=== PATIENT | female | born 1970 | race Caucasian/White ===

== ENCOUNTER 2018-01-18 08:17 | Day surgery (SDC) | payer OTHER, BC ==
[~2018-01-18] VITALS: Ht 162.6 cm; Wt 68.2 kg
[2018-01-18] MEDS ORDERED: TRAZ50TA12 PO (08:55)
[2018-01-18] MEDS ORDERED: ALPR.5 PO (08:55)
[2018-01-18] MEDS ORDERED: FOSA70TA PO (08:55)
[2018-01-18] MEDS ORDERED: CYMB60CA PO (08:55)
[2018-01-18] MEDS ORDERED: PRED5TAB PO (08:55)
[2018-01-18] MEDS ORDERED: LEVO75TA3 PO (08:55)
[2018-01-18] MEDS ORDERED: VITA1000 PO (08:55)
[2018-01-18 09:00] VITALS: BP 146/86; PULSE 86; RESP 17; TEMP 97.9; O2SAT 100
[2018-01-18] MEDS ORDERED: SODIUM CHLOR 0.9% 1000 ML INJ 1,000 ML IV SCH (09:30)
[2018-01-18 09:33] LABS: AUTOMATED NEUTROPHIL # 5.3 TH/MM3 (1.8-7.7); BASOPHIL # 0.1 TH/MM3 (0-0.2); BASOPHIL % 0.9 % (0.0-2.0); EOSINOPHIL # 0.1 TH/MM3 (0-0.4); EOSINOPHIL % 0.8 % (0.0-4.0); HEMATOCRIT 43.4 % (35.0-46.0); HEMOGLOBIN 14.8 GM/DL (11.6-15.3); LYMPH % 25.4 % (9.0-44.0); MEAN CELL VOLUME 85.4 FL (80.0-100.0); MEAN CORPUSCULAR HEMOGLOBIN 29.1 PG (27.0-34.0); MEAN CORPUSCULAR HGB CONC 34.1 % (32.0-36.0); MEAN PLATELET VOLUME 6.9 FL (7.0-11.0); MONO % 3.7 % (0.0-8.0); MONOCYTE # 0.3 TH/MM3 (0-0.9); NEUT % 69.2 % (16.0-70.0); PLATELET COUNT 332 TH/MM3 (150-450); RED BLOOD COUNT 5.08 MIL/MM3 (4.00-5.30); RED CELL DISTRIBUTION WIDTH 13.6 % (11.6-17.2); WHITE BLOOD COUNT 7.7 TH/MM3 (4.0-11.0)
[2018-01-18 09:35] LABS: PROTHROMBIN TIME - PATIENT 10.1 SEC (9.8-11.6)
[2018-01-18 09:55] LABS: BICARBONATE 27.6 MEQ/L (21.0-32.0); CALCIUM 9.3 MG/DL (8.5-10.1); CREATININE 0.96 MG/DL (0.50-1.00)
[2018-01-18 10:30] VITALS: BP 146/78; PULSE 84; RESP 18; TEMP 97.4; O2SAT 98
--- NOTE | 2018-01-18 10:44 | PD.RAD ---
Post Procedure Progress Note Pre Procedure Diagnosis: (1) Multiple sclerosis Post Procedure Diagnosis: (1) Multiple sclerosis Procedure Date: Jan 18, 2018 Supervising Radiologist: Ralph Silva Proceduralist/Assist: RT Ron(R), RT Carlene(R)(CV) Anesthesia: Local Plan of Activity Patient to Unit: ROPU Patient Condition: Good See PACS Report for procedural detail/treatment Spinal Procedure Lumbar Puncture L3-L4 Fluid Removal (CCs): 19 Additional Detail: opening pressure 27 closing pressure 8 Ralph Silva MD Jan 18, 2018 10:44
[2018-01-18 11:28] LABS: TOTAL PROTEIN,CSF 37.8 MG/DL (15.0-45.0)
[2018-01-18 13:19] LABS: SUPERNATE COLOR TUBE #1 CLEAR (CLEAR)
[2018-01-18 13:20] LABS: CSF LYMPHOCYTES 100 %; CSF NEUTROPHILS 0 %; RBC TUBE #1 26 /MM3; WBC TUBE #1 8 /MM3 (0-10)
[2018-01-18 13:25] LABS: CSF LYMPHOCYTES 0 %; CSF NEUTROPHILS 0 %; RBC TUBE #4 0 /MM3; WBC TUBE #4 0 /MM3 (0-10)
--- NOTE | 2018-01-18 14:04 | RADRPT ---
EXAM DATE/TIME: 01/18/2018 10:55 [facility] COMPARISON: No previous studies available for comparison. INDICATIONS : Patient presents with headache and cervical myelopathy in need of lumbar puncture with opening pressu res to rule out multiple sclerosis. MEDICAL HISTORY : MS Cervical myelopathy Spasticity Thyroid disease SURGICAL HISTORY : Lap Hernia repair ENCOUNTER: Initial ACUITY: >1 year PAIN SCORE: 7/10 LOCATION: Headache LUMBAR PUNCTURE TIME: 10:17 hours FLUORO TIME: 1.5 minutes IMAGE SERIES: 0 ACCESS LEVEL: L3-4 OPENING PRESSURE: 27 cm of water CLOSING PRESSURE: 8 cm of water FLUID: 19.5 cc of clear CSF was collected and sent to the laboratory for analysis. PROCEDURE : 1. Fluoroscopic guided lumbar puncture. 2. Recording of opening pressure. The risks, benefits and alternatives to the procedure were explained and verbal and written consent w as obtained. The site was prepped in sterile fashion. Full sterile technique was used, including ca p, mask, sterile gloves and gown and a large sterile sheet. Hand hygiene and 2% chlorhexidine and/or betadine/alcohol prep was utilized per protocol for cutaneous antisepsis. The skin and subcutaneous tissues were infiltrated with local anesthetic solution. With fluoroscopic guidance the lumbar thecal sac was punctured at the above level described above and the opening pressure was recorded. The above described fluid was removed without difficulty. The patient tolerated the procedure well and there were no complications. CONCLUSION: Uncomplicated fluoroscopically guided lumbar puncture with pressures as above. Ralph Silva MD on January 18, 2018 at 14:03 Board Certified Radiologist. This report was verified electronically.
[2018-01-19 07:22] LABS: HSV 1,PCR Negative (Negative)
[2018-01-19 09:55] LABS: CMV DNA QUANT BY RAPID PCR Negative (Negative); CMV PCR SPECIMEN SOURCE LUMBAR PUNCTURE
[2018-01-20 19:53] LABS: CSF CRYPTOCOCCUS ANTIGEN NOT DETECTED (NEGATIVE)
[2018-01-21 10:45] LABS: CSF CRYPTOCOCCUS AG CONF ND (NOT DETECTD)
[2018-01-22 23:54] LABS: VZV PCR RESULT <500 (<500 copies)
== END 2018-01-18 14:00 | disposition home or self-care (01) ==
LOC: HROP 08:17 → HRIP 08:30 → HROP 14:00
PROVIDERS: ATTEND Psychiatry & Neurology Neurology
DX: G35 Multiple sclerosis (principal)
CPT/HCPCS: 62270; 77003; 80048; 82040; 82042; 82784; 82945; 83873; 83916; 84157; 85025; 85610; 85730; 86403; 86618; 87070; 87205; 87497; 87529; 87799; 88108; 89051; J7030

== ENCOUNTER 2018-01-21 13:14 | Emergency (ER) | payer OTHER, BC ==
[~2018-01-21] VITALS: Ht 162.6 cm; Wt 67.0 kg
[~2018-01-21 13:14] MED LIST: ALPR.5 PO; CYMB60CA PO; FOSA70TA PO; LEVO75TA3 PO; PRED5TAB PO; TRAZ50TA12 PO; VITA1000 PO
[2018-01-21 13:21] VITALS: BP 180/94; PULSE 94; RESP 17; TEMP 96.7; O2SAT 100
[2018-01-21] MEDS ORDERED: IBUP1TAB7 PO (13:52)
[2018-01-21] MEDS ORDERED: PRED5TAB PO (13:52)
[2018-01-21 13:58] VITALS: BP 180/93; PULSE 86; RESP 20; O2SAT 97
[2018-01-21] MEDS ORDERED: SODIUM CHLOR 0.9% 1000 ML INJ 1,000 ML IV SCH (14:08)
[2018-01-21] MEDS ORDERED: PROCHLORPERAZINE INJ 10 MG/2 ML VIAL IVP ONE (14:15)
[2018-01-21] MEDS ORDERED: diphenhydrAMINE HCL 50 MG/ML VIAL IVP ONE (14:15)
[2018-01-21] MEDS ORDERED: SODIUM CHLORIDE 0.9% FLUSH 10 ML FLUSH IV FLUSH PRN (14:15)
--- NOTE | 2018-01-21 14:46 | PD ---
HPI Chief Complaint: Headache Time Seen by Provider: 13:52 Travel History International Travel<30 days: No Contact w/Intl Traveler<30days: No Traveled to known affect area: No History of Present Illness HPI 47-year-old female presents to the emergency department with complaint of headaches today and yesterday after having lumbar puncture on for a workup for MS. Her lumbar puncture was done here by Dr. Daniels. She said she did have a spinal headache after the procedure and it went away. Headache is frontal. Suddenly onset. Said she had a hot flash and then the headache onset. Denies photophobia, phonophobia, change in vision. Denies confusion, disorientation, change in mentation, slurred speech, focal deficits or weakness. Denies fever. Reports nausea without vomiting. Said she did get a "mouthful of vomit." Says she does have "left-sided decreased coordination" that is not new and that is what she is currently being worked up for outpatient. Rates headache 06/29. Describes it as sharp. Says it is constant. Has tried taking ibuprofen 800 mg with no relief of symptoms. Headache is decreased when she lies back. Primary care provider is Dr. Jodi Schulte. Allergies to cats. Says her blood pressure is been elevated on and off for the past 6 months but has not been diagnosed with hypertension and does not take medications. Otherwise she has no chronic medical complaints. No other modifying factors or associated signs and symptoms. PFSH Past Medical History Cancer: No Cardiovascular Problems: No Diabetes: No Endocrine: No Genitourinary: No Hepatitis: No Hiatal Hernia: No Immune Disorder: Yes (LP MONDAY-R/O MS ) Musculoskeletal: No Neurologic: Yes (spasms ) Psychiatric: Yes (depression, anxiety) Reproductive: Yes (fibroids) Respiratory: No Thyroid Disease: Yes ?: Not Menopausal: Yes Past Surgical History Abdominal Surgery: Yes (lap, hernia) AICD: No Cardiac Surgery: No Ear Surgery: No Endocrine Surgery: No Eye Surgery: No Genitourinary Surgery: No Gynecologic Surgery: No Joint Replacement: No Oral Surgery: No Pacemaker: No Thoracic Surgery: No Other Surgery: Yes Social History Alcohol Use: Yes Tobacco Use: No Substance Use: No Allergies-Medications (Allergen,Severity, Reaction): Uncoded Allergies: cats (Allergy, Severe, Anaphylaxis, 01/18/18) Reported Meds & Prescriptions Reported Meds & Active Scripts Active Reported Ibuprofen 800 Mg Tab 800 Mg PO Q6HR PRN Prednisone 5 Mg Tab 5 Mg PO DAILY Xanax (Alprazolam) 0.5 Mg Tab 0.5 Mg PO Q8H PRN Fosamax (Alendronate Sodium) 70 Mg Tab 70 Mg PO Q7D Vitamin D-1000 (Cholecalciferol) 1,000 Unit Tab 2,000 Units PO DAILY Trazodone (Trazodone HCl) 50 Mg Tab 50 Mg PO HS Levothyroxine (Levothyroxine Sodium) 75 Mcg Tab 75 Mcg PO DAILY Cymbalta DR (Duloxetine HCl) 60 Mg Capdr 60 Mg PO DAILY Review of Systems Except as stated in HPI: all other systems reviewed are Neg Physical Exam Narrative GENERAL: Well-nourished, well-developed female patient, in no acute distress SKIN: Warm and dry. HEAD: Atraumatic. Normocephalic. No facial droop noted. Tongue midline. Shoulder shrug equal. Finger to nose test normal. EYES: Pupils equal and round at 4 mm with brisk reaction. No scleral icterus. No injection or drainage. PERRLA. EOMI. ENT: Mucosa pink and moist. Airway patent. NECK: Trachea midline. No lymphadenopathy. CARDIOVASCULAR: Regular rate and rhythm. No murmur appreciated. RESPIRATORY: No accessory muscle use. Clear to auscultation. Breath sounds equal bilaterally. GASTROINTESTINAL: Abdomen soft, non-tender, nondistended. Hepatic and splenic margins not palpable. Bowel sounds are active 4 quadrants. MUSCULOSKELETAL: No obvious deformities. No clubbing. No cyanosis. No edema. NEUROLOGICAL: Awake and alert. Oriented 4. No obvious cranial nerve deficits. Motor grossly within normal limits. Normal speech. No ataxia. No mid -line drift. No upper or lower extremity drift. Moves all extremities. 5/5 strength to all extremities. PSYCHIATRIC: Appropriate mood and affect; insight and judgment normal. Data Data Last Documented VS Vital Signs Date Time Temp Pulse Resp B/P (MAP) Pulse Ox O2 Delivery O2 Flow Rate FiO2 01/21/18 13:58 86 20 180/93 (122) 97 Room Air 01/21/18 13:21 96.7 Orders Orders Iv Access Insert/Monitor (01/21/18 14:08) Sodium Chlor 0.9% 1000 Ml Inj (Ns 1000 M (3/4/18 14:08) Sodium Chloride 0.9% Flush (Ns Flush) (01/21/18 14:15) Prochlorperazine Inj (Compazine Inj) (01/21/18 14:15) Diphenhydramine Inj (Benadryl Inj) (01/21/18 14:15) Ketorolac Inj (Toradol Inj) (01/21/18 15:00) MDM Medical Decision Making Medical Screen Exam Complete: Yes Emergency Medical Condition: Yes Medical Record Reviewed: Yes Differential Diagnosis Headache after spinal puncture, CSF leak, medical clearance Narrative Course 47-year-old female with headache after lumbar puncture that was done on . Neuro exam is unremarkable. I discussed the patient with Dr. Cortés and she recommended calling radiology to determine imaging done to rule out CSF leak. Dr. Erickson spoke with Dr. Sandhu, radiologist and he recommended for the patient to lie flat and drink caffeinated drinks, and for the patient to follow-up with interventional radiologist. IV, normal saline bolus, Compazine, Toradol, Benadryl ordered. 1523: Patient does not want any intervention for her headache and want to be discharged home; she is refusing normal saline bolus and medication administration. Discussed with Dr. Cortés and she agrees with discharge and for patient it followup with PCP or interventional radiology tomorrow. Instructed patient to follow-up with interventional radiology. Instructed patient to follow up with primary care provider. Patient verbalizes understanding and agreement with treatment plan. Patient is medically cleared and stable for discharge. Discussed reasons to return to the emergency department. Patient agrees with treatment plan. The patients vital signs are stable and the patient is stable for outpatient follow-up and treatment. Patient discharged home, stable and in no acute distress. Diagnosis Primary Impression: Headache after spinal puncture Referrals: Primary Care Physician Patient Instructions: Acute Headache (ED), General Instructions, Lumbar Puncture (ED) Additional Instructions: Follow-up with interventional radiologist tomorrow Ibuprofen or Tylenol as directed and as needed for headache Lay flat Drink caffeinated beverages Follow-up with primary care provider Return to the emergency department immediately with worsening symptoms Med/Other Pt SpecificInfo: No Change to Meds, No Meds Exist/No RX given Disposition: DISCHARGE HOME Condition: Stable Michelle Cuenca Jan 21, 2018 14:46
[2018-01-21] MEDS ORDERED: KETOROLAC TROMETHAMINE 60 MG/2 ML (IM) VIAL IM ONE (15:00)
== END 2018-01-21 15:31 | disposition home or self-care (01) ==
LOC: NEPD 13:14
DX: G97.1 Other reaction to spinal and lumbar puncture (principal); Y84.4 Aspiration of fluid as the cause of abnormal reaction of the patient, or of later complication, without mention of misadventure at the time of the procedure; E07.9 Disorder of thyroid, unspecified
CPT/HCPCS: 99282

== ENCOUNTER → 2018-01-22 | Day surgery (SDC) | payer OTHER, BC ==
[~2018-01-22] VITALS: Ht 162.6 cm; Wt 68.0 kg
[~2018-01-22] MED LIST changes: +IBUP1TAB7 PO
[2018-01-22 16:21] VITALS: BP 148/80; PULSE 80; RESP 16; TEMP 98; O2SAT 99
== END | disposition home or self-care (01) ==
LOC: HSDC 12:39
PROVIDERS: ATTEND Radiology Body Imaging
DX: R51 Headache (principal)
CPT/HCPCS: 62273